=== PATIENT | male | born 1940 | race Caucasian/White ===

== ENCOUNTER 2020-01-20 10:04 | Emergency (ER) | payer OTHER, MEDICARE ==
[2020-01-20] MEDS ORDERED: IBUPROFEN600 MG PO (10:29)
[2020-01-20] MEDS ORDERED: HYDROCHLOROTH12.5 MG PO (10:29)
[2020-01-20] MEDS ORDERED: TERAZOSIN5 MG PO (10:30)
[2020-01-20] MEDS ORDERED: ASPIRIN81 MG PO (10:30)
[2020-01-20 11:46] LABS: HEMATOCRIT 40.3 % (39.0-50.0); HEMOGLOBIN 13.7 g/dl (14.0-18.0); IMMATURE GRANULOCYTES 0.5 % (0.0-5.0); MEAN CELL VOLUME 94.6 fL CALC (80.0-100.0); MEAN CORPUSCULAR HGB 32.2 pG CALC (26.0-32.0); NEUT# 6.57 thou/uL (1.82-7.42); RED BLOOD COUNT 4.26 mill/uL (4.70-6.10); RED CELL DISTRI WIDTH 12.9 % (11.5-15.5)
[2020-01-20 12:08] LABS: ALKALINE PHOSPHATASE 96 u/l (38-126); ANION GAP 10 (6-22 (CALC)); BILIRUBIN, TOTAL 0.5 mg/dL (0.0-1.4); BUN 16 mg/dL (8-23); BUN/CREATININE RATIO 17 (12-20 (CALC)); CARBON DIOXIDE 26 mmol/l (22-30); CHLORIDE 103 mmol/l (95-108); GFR > 60 ML/MIN (>=60 (CALC)); GFR FOR AFR.AMER. > 60 ML/MIN (>=60 (CALC)); POTASSIUM 3.6 mmol/l (3.5-5.1); SGOT/AST 28 u/l (19-48); SODIUM 136 mmol/l (137-146); TOTAL PROTEIN 6.9 g/dL (6.3-8.2)
[2020-01-20 12:09] LABS: URINE BILIRUBIN - DIPSTICK NEGATIVE (NEGATIVE); URINE BLOOD DIPSTICK NEGATIVE (NEGATIVE); URINE COLOR YELLOW; URINE GLUCOSE - DIPSTICK NEGATIVE (NEGATIVE); URINE KETONE NEGATIVE (NEGATIVE); URINE LEUK ESTERASE NEGATIVE (NEGATIVE); URINE NITRITE - DIPSTICK NEGATIVE (Negative); URINE PROTEIN - DIPSTICK NEGATIVE (NEG-TRACE); URINE SPECIFIC GRAVITY 1.015; URINE UROBILINOGEN - DIPSTICK 0.2 E.U./dL (0.2)
[2020-01-20] MEDS ORDERED: ZITHROMAX250 MG PO (13:18)
[2020-01-20] MEDS ORDERED: MEDDOSEPAK PO (13:18)
[2020-01-20 13:42] VITALS: BP 132/78
--- NOTE | 2020-01-27 12:05 | NUR ---
Notified patient of negative Covid results. Advised patient to follow up with PCP or return to ED with urgent needs. Advised patient to continue Covid prevention measures. Patient verbalized understanding.
== END 2020-01-20 13:45 | disposition home or self-care (01) | DRG 192 ==
LOC: ED 10:04
DX: J44.1 Chronic obstructive pulmonary disease with (acute) exacerbation (principal); I10 Essential (primary) hypertension; Z87.891 Personal history of nicotine dependence; Z20.828 Contact with and (suspected) exposure to other viral communicable diseases

== ENCOUNTER 2020-10-09 10:07 | Emergency (ER) | payer OTHER, MEDICARE ==
[~2020-10-09] VITALS: Ht 177.8 cm; Wt 98.6 kg
[~2020-10-09 10:07] MED LIST: ASPIRIN81 MG PO; HYDROCHLOROTH12.5 MG PO; IBUPROFEN600 MG PO; MEDDOSEPAK PO; TERAZOSIN5 MG PO; ZITHROMAX250 MG PO
[2020-10-09 11:19] LABS: HEMATOCRIT 39.1 % (39.0-50.0); HEMOGLOBIN 13.3 g/dl (14.0-18.0); IMMATURE GRANULOCYTES 0.3 % (0.0-5.0); NEUT# 3.68 thou/uL (1.82-7.42); RED BLOOD COUNT 4.16 mill/uL (4.70-6.10); RED CELL DISTRI WIDTH 12.6 % (11.5-15.5)
[2020-10-09 11:46] LABS: D-DIMER 0.51 mg/L (0.19-0.60)
[2020-10-09 11:50] LABS: ACT PARTIAL THROMBO TIME 25.4 SECONDS (20.0-32.5); ALBUMIN 3.9 g/dL (3.2-5.0); ALKALINE PHOSPHATASE 92 u/l (38-126); ANION GAP 9 (6-22 (CALC)); BILIRUBIN, TOTAL 0.4 mg/dL (0.0-1.4); BUN 13 mg/dL (8-23); BUN/CREATININE RATIO 17 (12-20 (CALC)); CARBON DIOXIDE 28 mmol/l (22-30); CHLORIDE 99 mmol/l (95-108); CREATININE 0.8 mg/dL (0.7-1.3); GFR > 60 ML/MIN (>=60 (CALC)); GFR FOR AFR.AMER. > 60 ML/MIN (>=60 (CALC)); LIPASE 68 u/l (23-300); POTASSIUM 3.7 mmol/l (3.5-5.1); PROTHROMBIN TIME 10.1 SECONDS (9.0-12.5); SGOT/AST 30 u/l (19-48); SODIUM 132 mmol/l (137-146); TOTAL PROTEIN 6.4 g/dL (6.3-8.2)
[2020-10-09 12:28] LABS: URINE BILIRUBIN - DIPSTICK NEGATIVE (NEGATIVE); URINE BLOOD DIPSTICK NEGATIVE (NEGATIVE); URINE COLOR YELLOW; URINE GLUCOSE - DIPSTICK NEGATIVE (NEGATIVE); URINE KETONE NEGATIVE (NEGATIVE); URINE LEUK ESTERASE NEGATIVE (NEGATIVE); URINE NITRITE - DIPSTICK NEGATIVE (Negative); URINE PROTEIN - DIPSTICK NEGATIVE (NEG-TRACE); URINE UROBILINOGEN - DIPSTICK 0.2 E.U./dL (0.2)
[2020-10-09] MEDS ORDERED: MEDDOSEPAK PO (13:57)
[2020-10-09] MEDS ORDERED: AMOX/K CLAV875 M1 PO (13:57)
[2020-10-09] MEDS ORDERED: TESSALON PERLE100 MG PO (13:57)
[2020-10-09 14:01] VITALS: BP 175/88
== END 2020-10-09 14:29 | disposition home or self-care (01) | DRG 192 ==
LOC: ED 10:07
DX: J44.1 Chronic obstructive pulmonary disease with (acute) exacerbation (principal); I10 Essential (primary) hypertension; Z20.822 Contact with and (suspected) exposure to COVID-19
CPT/HCPCS: Q9967

== ENCOUNTER 2021-10-28 09:57 | Emergency (ER) | payer OTHER, MEDICARE ==
[2021-10-28] VITALS (12 sets, daily range): BP systolic 116–157; BP diastolic 54–92
[~2021-10-28] VITALS: Ht 177.8 cm; Wt 100.0 kg
[~2021-10-28 09:57] MED LIST changes: +AMOX/K CLAV875 M1 PO; +TESSALON PERLE100 MG PO
[2021-10-28 10:33] LABS: HEMATOCRIT 40.3 % (39.0-50.0); HEMOGLOBIN 12.9 g/dl (14.0-18.0); IMMATURE GRANULOCYTES 0.3 % (0.0-5.0); MEAN CELL VOLUME 95.5 fL CALC (80.0-100.0); MEAN CORPUSCULAR HGB 30.6 pG CALC (26.0-32.0); NEUT# 3.1 thou/uL (1.82-7.42); RED BLOOD COUNT 4.22 mill/uL (4.70-6.10); RED CELL DISTRI WIDTH 13.8 % (11.5-15.5)
[2021-10-28 10:58] LABS: ALBUMIN 3.8 g/dL (3.2-5.0); ALKALINE PHOSPHATASE 113 u/l (38-126); ANION GAP 9 (6-22 (CALC)); BILIRUBIN, TOTAL 0.4 mg/dL (0.0-1.4); BUN 17 mg/dL (8-23); BUN/CREATININE RATIO 20 (12-20 (CALC)); CARBON DIOXIDE 25 mmol/l (22-30); CHLORIDE 106 mmol/l (95-108); CREATININE 0.8 mg/dL (0.7-1.3); GFR > 60 ML/MIN (>=60 (CALC)); GFR FOR AFR.AMER. > 60 ML/MIN (>=60 (CALC)); POTASSIUM 4.2 mmol/l (3.5-5.1); SGOT/AST 25 u/l (19-48); SODIUM 137 mmol/l (137-146); TOTAL PROTEIN 6.5 g/dL (6.3-8.2)
[2021-10-28] MEDS ORDERED: PROAIR HFA108 MCG/AC PO (12:36)
[2021-10-28] MEDS ORDERED: PREDNISONE50 MG PO (12:36)
[2021-10-28] MEDS ORDERED: ZPAK PO (12:36)
== END 2021-10-28 12:58 | disposition home or self-care (01) | DRG 192 ==
LOC: ED 09:57
PROVIDERS: Family Medicine
DX: J44.9 Chronic obstructive pulmonary disease, unspecified (principal); I10 Essential (primary) hypertension; Z20.822 Contact with and (suspected) exposure to COVID-19

== ENCOUNTER 2022-11-01 18:50 | Emergency (ER) | payer OTHER, MEDICARE ==
[~2022-11-01] VITALS: Ht 177.8 cm; Wt 100.0 kg
[~2022-11-01 18:50] MED LIST changes: +PREDNISONE50 MG PO; +PROAIR HFA108 MCG/AC PO; +ZPAK PO
[2022-11-01 22:07] LABS: EOS% 3.6 % (0-8); HEMATOCRIT 42.6 % (39.0-50.0); HEMOGLOBIN 13.6 g/dl (14.0-18.0); IMMATURE GRANULOCYTES 0.2 % (0.0-5.0); LYMPH% 18.3 % (15-41); MEAN CELL VOLUME 93.8 fL CALC (80.0-100.0); MEAN CORPUSCULAR HGB CONC 31.9 g/dL CAL (32.0-36.0); MONO% 10.4 % (2-13); NEUT# 3.34 thou/uL (1.82-7.42); NEUT% 66.5 % (42-76); RED BLOOD COUNT 4.54 mill/uL (4.70-6.10); RED CELL DISTRI WIDTH 13.3 % (11.5-15.5)
[2022-11-01 22:19] LABS: ALBUMIN 4.2 g/dL (3.2-5.0); ALKALINE PHOSPHATASE 114 u/l (38-126); ANION GAP 11 (6-22 (CALC)); BILIRUBIN, TOTAL 0.4 mg/dL (0.2-1.3); BUN 13 mg/dL (8-23); BUN/CREATININE RATIO 18 (12-20 (CALC)); CARBON DIOXIDE 26 mmol/l (22-30); CHLORIDE 105 mmol/l (95-108); CREATININE 0.8 mg/dL (0.7-1.3); GFR FOR AFR.AMER. > 60 ML/MIN (>=60 (CALC)); GFR OTHER RACES > 60 ML/MIN (>=60 (CALC)); POTASSIUM 3.8 mmol/l (3.5-5.1); SGOT/AST 25 u/l (19-48); SODIUM 139 mmol/l (137-146)
[2022-11-01 22:29] LABS: ACT PARTIAL THROMBO TIME 26.7 SECONDS (20.0-32.5); PROTHROMBIN TIME 10.4 SECONDS (9.0-12.5)
[2022-11-01 23:33] VITALS: BP 136/84
== END 2022-11-01 23:45 | disposition home or self-care (01) | DRG 607 ==
LOC: ED 18:50
PROVIDERS: Family Medicine
DX: I89.0 Lymphedema, not elsewhere classified (principal); L08.89 Other specified local infections of the skin and subcutaneous tissue; I10 Essential (primary) hypertension; J44.9 Chronic obstructive pulmonary disease, unspecified